=== PATIENT | female | born 1985 | race American Indian/Alaskan Native ===

== ENCOUNTER 2017-02-17 16:30 | Outpatient (CLI) | payer MEDICAID ==
[2017-02-17] MEDS ORDERED: LACTATED RINGERS 500 ML IV ONE (16:40)
[2017-02-17 17:02] LABS: Bilirubin,Urine NEG (Negative); Blood,Urine NEG (Negative); Ketones,Urine NEG (Negative); Leukocyte Esterase,Urine NEG (Negative); Nitrite,Urine NEG (Negative); Protein,Urine <15 mg/dL mg/dL (Negative); Urobilinogen,Urine < 2.0 mg/dL (<2.0); WBC,Urine < 1.0 /HPF (0.0-6.0)
[2017-02-17 17:50] VITALS: BP 123/69
== END 2017-02-17 18:05 | disposition home or self-care (01) ==
LOC: TRG 16:30
PROVIDERS: ATTEND Obstetrics & Gynecology
DX: O47.03 False labor before 37 completed weeks of gestation, third trimester (principal); Z3A.34 34 weeks gestation of pregnancy
CPT/HCPCS: 59025; 81001; 96360; J7120

== ENCOUNTER 2017-03-10 19:43 | Outpatient (CLI) | payer MEDICAID ==
[2017-03-10 20:01] VITALS: BP 123/78
== END 2017-03-10 23:05 | disposition home or self-care (01) ==
LOC: TRG 19:43
PROVIDERS: ATTEND Obstetrics & Gynecology
DX: O42.92 Full-term premature rupture of membranes, unspecified as to length of time between rupture and onset of labor (principal); Z3A.37 37 weeks gestation of pregnancy

== ENCOUNTER 2017-03-20 22:23 | Outpatient (CLI) | payer MEDICAID ==
[2017-03-20 23:33] VITALS: BP 127/77
[2017-03-21] MEDS ORDERED: VISTARIL PO ONE (00:33)
== END 2017-03-21 00:55 | disposition home or self-care (01) ==
LOC: TRG 22:23
PROVIDERS: ATTEND Obstetrics & Gynecology
CPT/HCPCS: 59025; Q0177

== ENCOUNTER 2017-03-26 13:21 | Inpatient (IN) | payer MEDICAID ==
[2017-03-26] MEDS ORDERED: ZOFRAN IV PRN (13:24)
[2017-03-26] MEDS ORDERED: SUBLIMAZE IV PRN (13:24)
[2017-03-26] MEDS ORDERED: ePHEDrine SULFATE IV PRN ×2 (13:24→16:25)
[2017-03-26] MEDS ORDERED: POLYCILLIN/NS 2 GM/100 ML 2 GM/100 ML BAG IV ONE (13:24)
[2017-03-26] MEDS ORDERED: BRETHINE SUB-Q PRN (13:24)
[2017-03-26] MEDS ORDERED: MINERAL OIL PO PRN (13:24)
--- NOTE | 2017-03-26 13:58 | History and Physical Report ---
History of Present Illness Date of examination: 03/26/17 (5cm dilated in office today) Date of admission: 03/26/17 13:21 History of present illness: EDC Confirmation: 03/30/2017 Gestational Age: 16 1/7 weeks Past History : 3 # 1 Delivery date: 07/28/1999 Delivery type: SAB Comments: D&C # 2 Delivery date: 01/17/2013 Weeks Gestation: 37 labor: yes Delivery type: Delivery location: [place] Infant Sex: Male weight: 5-10 Comments: Vane sebastian # 3 Delivery date: 10/07/2014 Weeks Gestation: 38 labor: yes Delivery type: Delivery location: [place] Sex: Male weight: 6-10 Comments: Vane Past Medical History: Hypertension--off meds for 8 mo prior to today Past Surgical History: negative Past Medical History Anesthesia Complications: negative Anemia: negative Autoimmune Disorder: negative Bleeding Disorder: negative Blood Transfusions: negative Breast Disease: negative Diabetes: negative Heart Disease: negative Hypertension: negative Hepatitis/Liver Disease: negative Kidney Disease/UTI: negative Neurologic/Epilepsy/Migraines: negative Phlebitis/Varicosities: negative Psychiatric: negative Pulmonary Disease/Asthma: negative Thyroid Disease: negative Hospitalizations: negative Surgery (Non-nurse obgyn): negative Infection History Hx of STD: none HIV Risk Eval: low risk Hepatitis B Risk Eval: low risk Personal hx. of genital herpes: yes Partner hx. of genital herpes: no Varicella/Chicken Pox Status: Previous Disease TB Risk: no Infection History Comments: never had another outbreak Genetic History Congenital Heart Defect: Mom: no Dad: no Isaura Disease: Mom: no Dad: no Thalassemia Mom: no Dad: no Neural Tube Defect Mom: no Dad: no Down's Syndrome Mom: no Dad: no Cam-Sachs Mom: no Dad: no Sickle Cell Disease/Trait Mom: no Dad: no Hemophilia Mom: no Dad: no Muscular Dystrophy Mom: no Dad: no Cystic Fibrosis Mom: no Dad: no María Chorea Mom: no Dad: no Mental Retardation Mom: no Dad: no Fragile X Mom: no Dad: no Other Genetic/Chromosomal Disorder Mom: no Dad: no Child w/other defect Mom: no Dad: no Comments/Counselin yo has autism Enviromental Exposures Xray Exposure: no Medication, drug, or alcohol use since LMP: no Chemical/Other Exposure: no Exposure to Cat Liter: no Current Allergies (reviewed today): No known allergies Laboratory Results Routine Urinalysis Leukocytes: negative Nitrite: negative Urobilinogen: negative Protein: negative Blood: negative Ketone: negative Bilirubin: negative Glucose: negative Urine HCG: positive Review of Systems General Denies fever, chills, sweats, anorexia, fatigue, weakness, malaise, weight loss and sleep disorder. Denies nausea, vomiting, headache, swelling of legs, abdominal pain, vaginal discharge, vaginal bleeding and contractions. Denies vaginal discharge, incontinence, dysuria, hematuria, urinary frequency, amenorrhea, menorrhagia, abnormal vaginal bleeding, pelvic pain, genital sores, decreased libido, painful periods, painful sex, urinary urgency, hot flashes, vaginal dryness, vaginal itching and vaginal odor. CV Denies chest pains, palpitations, syncope, dyspnea on exertion, orthopnea, PND and peripheral edema. Resp Denies cough, dyspnea at rest, excessive sputum, hemoptysis, wheezing and pleurisy. GI Denies nausea, vomiting, diarrhea, constipation, change in bowel habits, abdominal pain, melena, hematochezia, jaundice, gas/bloating, indigestion/ heartburn, dysphagia and odynophagia. Endo Denies cold intolerance, heat intolerance, polydipsia, polyphagia, polyuria and unusual weight change. Breast Denies left breast lump, right breast lump, nipple discharge, bloody discharge from nipple, breast pain, abnormal mammogram and breast enlargement. MS Denies back pain, joint pain, joint swelling, muscle cramps, muscle weakness, stiffness, arthritis, sciatica, restless legs, leg pain at night and leg pain with exertion. Derm Denies rash, itching, dryness and suspicious lesions. Neuro Denies paralysis, paresthesias, headache, seizures, tremors, vertigo, transient blindness, frequent falls, frequent headaches and difficulty walking. Psych Denies depression, anxiety, irritability and mood swings. Eyes Denies blurring, diplopia, irritation, discharge, vision loss, eye pain and photophobia. ENT Denies earache, ear discharge, tinnitus, decreased hearing, nasal congestion, nosebleeds, sore throat and hoarseness. Allergy Denies urticaria, allergic rash, hay fever and recurrent infections. Heme Denies abnormal bruising, bleeding and enlarged lymph nodes. 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 Vulva/Vagina: No lesions, normal BUS, normal rugae Cervix: No lesions; no cervical motion tenderness Uterus: normal size and position, midline, mobile size: 16 Adnexae: no masses or tenderness Rectovaginal: no masses or tenderness Past History - Obstetrical History Expected Date of Delivery: 03/30/17 Actual Gestation: 39 Week(s) 3 Day(s) : 4 Para: 2 Hx # Term Pregnancies: 2 Number of Pregnancies: 0 Spontaneous Abortions: 1 Induced : 0 Number of Living Children: 2 Medications and Allergies Allergies Allergy/AdvReac Type Severity Reaction Status Date / Time No Known Allergies Allergy Unverified 02/17/17 16:40 Home Medications Medication Instructions Recorded Confirmed Last Taken Type Vit No.129/Iron/Folic 1 each PO DAILY 03/26/17 03/26/17 03/25/17 13:00 History [ Tablet] valACYclovir [Valtrex] 500 mg PO DAILY 03/26/17 03/26/17 03/25/17 13:00 History Active Meds: Active Medications Ephedrine Sulfate (Ephedrine Sulfate) 10 mg IV Q2M PRN PRN Reason: Hypotension Fentanyl (Sublimaze) 100 mcg IV Q2H PRN PRN Reason: Labor Pain Ampicillin Sodium (Polycillin/Ns 1 Gm/50 Ml) 1 gm in 50 mls @ 100 mls/hr IV Q4H ADOLFO PRN Reason: Protocol Ampicillin Sodium (Polycillin/Ns 2 Gm/100 Ml) 2 gm in 100 mls @ 100 mls/hr IV ONCE ONE PRN Reason: Protocol Stop: 03/26/17 14:23 Lactated Ringer's (Lactated Ringers) 1,000 mls @ 125 mls/hr IV DIRECT ADOLFO Oxytocin/Sodium Chloride (Pitocin/Ns 20 Unit/1000ml Drip) 20 units in 1,000 mls @ 125 mls/hr IV DIRECT ADOLFO Oxytocin/Sodium Chloride (Pitocin/Ns 30 Unit/500ml) 30 units in 500 mls @ 4 mls /hr IV Q30MIN ADOLFO PRN Reason: Protocol Lidocaine (Xylocaine 2%) 20 ml INFILTRATI ONCE ONE Stop: 03/26/17 14:25 Mineral Oil (Mineral Oil) 30 ml PO QHS PRN PRN Reason: Constipation Ondansetron HCl (Zofran) 4 mg IV Q8H PRN PRN Reason: Nausea And Vomiting Terbutaline Sulfate (Brethine) 0.25 mg SUB-Q ONCE PRN PRN Reason: Hyperstimulation/Hypertonicity - Physical Exam Breasts: Positive: deferred Cardiovascular: Regular rate, Normal S1, Normal S2 Lungs: Positive: Normal air movement Abdomen: Positive: normal appearance, soft, normal bowel sounds. Negative: distention, tenderness Genitourinary (Female): Positive: normal external genitalia Vulva: both: normal Vagina: Positive: normal moisture. Negative: discharge Cervix: Negative: lesion, discharge Uterus: Positive: normal size, normal contour Adnexa: both: normal Anus/Rectum: Positive: normal perianal skin, heme negative. Negative: rectal mass, hemorrhoids Extremities: Deep Tendon Reflex Grade: Normal +2 - Obstetrical FHR: category 1 Uterine Contraction Monitor Mode: External Uterine Contraction Pattern: Irregular Uterine Tone Measurement Phase: Resting Uterine Contraction Intensity: Moderate Results All other labs normal. Strep Gp B LEA [A] Positive HBsAg Screen Negative Negative *1 Rubella Antibodies, IgG 2.78 index Immune >0.99 *2 Non-immune <0.90 Equivocal 0.90 - 0.99 Immune >0.99 ABO Grouping O *3 Rh Factor Negative *4 Please note: Prior records for this patient's ABO / Rh type are not available for additional verification. Antibody Screen Negative Negative *5 RPR Non Reactive Non Reactive *6 WBC 5.4 x10E3/uL 3.4-10.8 *7 RBC 4.54 x10E6/uL 3.77-5.28 *8 Hemoglobin 13.5 g/dL 11.1-15.9 *9 Hematocrit 42.6 % 34.0-46.6 *10 MCV 94 fL 79-97 *11 MCH 29.7 pg 26.6-33.0 *12 MCHC 31.7 g/dL 31.5-35.7 *13 RDW 14.2 % 12.3-15.4 *14 Platelets 232 x10E3/uL 150-379 *15 Neutrophils 62 % *16 Lymphs 32 % *17 Monocytes 5 % *18 Eos 1 % *19 Basos 0 % *20 ! Immature Cells <No Reported Value> *21 Neutrophils (Absolute) 3.3 x10E3/uL 1.4-7.0 *22 Lymphs (Absolute) 1.7 x10E3/uL 0.7-3.1 *23 Monocytes(Absolute) 0.3 x10E3/uL 0.1-0.9 *24 Eos (Absolute) 0.1 x10E3/uL 0.0-0.4 *25 Baso (Absolute) 0.0 x10E3/uL 0.0-0.2 *26 ! Immature Granulocytes 0 % *27 ! Immature Grans (Abs) 0.0 x10E3/uL 0.0-0.1 *28 ! NRBC <No Reported Value> *29 Hematology Comments: <No Reported Value> *30 Tests: (2) AFP Tetra (525026) ! Results Report *31 ! Test Results: *Screen Negative* *32 ! Gest. Age on Collection Date 16.0 WEEKS *33 ! Gestat. Age Based On LIDIA *34 03/31/2017 ! Maternal Age At LIDIA 32.8 YEARS *35 ! Race Black *36 ! Weight 177 lbs *37 ! Insulin Dep Diabetes No *38 ! Multiple Gestation No *39 ! AFP Value 16.1 ng/mL *40 ! AFP MoM 0.50 *41 ! hCG Value 49308 mIU/mL *42 ! hCG MoM 0.97 *43 ! uE3 Value 0.99 ng/mL *44 ! uE3 MoM 1.27 *45 ! CHAR Value 115.76 pg/mL *46 ! CHAR MoM 0.70 *47 ! OSBR [place] 1 [place] [address] *48 ! DSR (Second Trimester) 1 IN 3083 *49 ! DSR (By Age) 1 IN 460 *50 ! T18 Risk Not increased *51 ! T18 (By Age) 1:1793 *52 ! Interpretation NL42 *53 Interpretation: Screen Negative . *55 Tests: (3) SMN1 Copy Number Analysis ([id number]) ! Genetic Counselor: Not applicable *56 ! Client Specimen ID: Not applicable *57 ! Specimen Type: SPRCS *58 Peripheral Blood ! Specimen(s) Received: SPRCS *59 1 - Yellow (ACD) 10 ml round bottom tube(s) ! Clinical Data: SPRCS *60 Not Provided ! Ethnicity: SPRCS *61 Not Provided ! SMA Results: SPRCS *62 SMN1 copy number: 3 (Reduced Carrier Risk) ! SMA Interpretation: Note *63 This individual has an SMN1 copy number of three (or more). This result reduces but does not eliminate the risk to be a carrier of SMA. Information regarding clinical indication may provide a more detailed interpretation. Tests: (4) Cystic Fibrosis Profile (829286) ! CF, Screen Comment: *70 RESULTS: Negative for 32 mutations analyzed Tests: (5) HB Solu + Rflx Frac (344131) Hemoglobin (Hgb) Solubility Negative Negative *72 Tests: (6) Panel 155325 (118364) HIV Screen 4th Generation wRfx Non Reactive Non Reactive *73 Tests: (7) HCV Ab w/Rflx to Verification (832250) ! HCV Ab <0.1 s/co ratio 0.0-0.9 *74 Tests: (8) Comment: (261219) ! Comment: SPR *75 Non reactive HCV antibody screen is consistent with no HCV infection, unless recent infection is suspected or other evidence exists to indicate HCV infection. Assessment and Plan - Patient Problems (1) Rh negative, maternal Onset Date: ~03/26/17 Current Visit: Yes Status: Acute Qualifiers: Trimester: third trimester Qualified Code(s): O09.893 - Supervision of other high risk pregnancies, third trimester Plan to address problem: pt received Rhogam 01-29-17 @ 28 weeks gestation Antibody screen was negative @ that encounter (2) Group B Streptococcus carrier state affecting Onset Date: ~03/26/17 Current Visit: Yes Status: Acute Plan to address problem: Ampicillin order as per protocol (3) Active labor Onset Date: ~03/26/17 Current Visit: Yes Status: Acute Plan to address problem: 31yo @ 39 weeks sent from office in active labor 5 cm dilated All orders in EMR Anticipate delivery
[2017-03-26] MEDS ORDERED: PITOCin/NS 20 UNIT/1000ML DRIP 20 UNITS/1,000 ML BAG IV SCH (14:00)
[2017-03-26 14:01] LABS: Hematocrit 44.2 % (30.3-42.9); Hemoglobin 14.4 gm/dl (10.1-14.3); Mean Corpuscular HGB Conc 33 % (30-34); Mean Corpuscular Hemoglobin 30 pg (28-32); Mean Corpuscular Volume 93 fl (79-97); Platelet Count 179 K/mm3 (140-440); Red Blood Count 4.74 M/mm3 (3.65-5.03); Red Cell Distribution Width 14.3 % (13.2-15.2); White Blood Count 5.7 K/mm3 (4.5-11.0)
[2017-03-26] MEDS: LACTATED RINGERS 1,000 ML IV SCH ×3 (14:20→17:20)
[2017-03-26] MEDS ORDERED: XYLOCAINE 2% INFILTRATI ONE (14:24)
[2017-03-26] MEDS ORDERED: NARCAN 2 MG/2 ML IV PRN (16:25)
--- NOTE | 2017-03-26 16:25 | Anesthesia Consultation ---
Anesthesia Consult and Med Hx Date of service: 03/26/17 - Airway Anesthetic Teeth Evaluation: Good ROM Head & Neck: Adequate Mental/Hyoid Distance: Adequate Mallampati Class: Class II Intubation Access Assessment: Good - Pulmonary Exam CTA: Yes - Cardiac Exam Cardiac Exam: No Murmur - Pre-Operative Health Status ASA Pre-Surgery Classification: ASA2 Proposed Anesthetic Plan: Epidural - Pulmonary Hx Asthma: No COPD: No Hx Pneumonia: No - Cardiovascular System Hx Hypertension: Yes (had htn before which resolved after taking antihypertensives) - Central Nervous System Hx Seizures: No Hx Psychiatric Problems: No - Endocrine Hx Renal Disease: No Hx End Stage Renal Disease: No Hx Hypothyroidism: No Hx Hyperthyroidism: No - Hematic Hx Anemia: No Hx Sickle Cell Disease: No - Other Systems Hx Alcohol Use: Yes (occas social when not )
[2017-03-26] MEDS ORDERED: fentaNYL-BUPIV 2 MCG/ML-0.125% 200 MCG/100 ML BAG EPIDURAL SCH (17:00)
--- NOTE | 2017-03-26 17:30 | Progress Note ---
Assessment and Plan Pt comfortable with epidural SVE 6,70,-1 Will start pitocin as ordered. Anticipate delivery. - Patient Problems (1) Rh negative, maternal Onset Date: ~03/26/17 Current Visit: Yes Status: Acute Qualifiers: Trimester: third trimester Qualified Code(s): O09.893 - Supervision of other high risk pregnancies, third trimester (2) Group B Streptococcus carrier state affecting Onset Date: ~03/26/17 Current Visit: Yes Status: Acute (3) Active labor Onset Date: ~03/26/17 Current Visit: Yes Status: Acute Subjective - Subjective Date of service: 03/26/17 (comfortable with epidural) Interval history: EDC Confirmation: 03/30/2017 Gestational Age: 16 1/7 weeks Past History : 3 # 1 Delivery date: 07/28/1999 Delivery type: SAB Comments: D&C # 2 Delivery date: 01/17/2013 Weeks Gestation: 37 labor: yes Delivery type: Delivery location: [place] Sex: Male weight: 5-10 Comments: Vane sebastian # 3 Delivery date: 10/07/2014 Weeks Gestation: 38 labor: yes Delivery type: Delivery location: [place] Sex: Male weight: 6-10 Comments: Vane Past Medical History: Hypertension--off meds for 8 mo prior to today Past Surgical History: negative Past Medical History Anesthesia Complications: negative Anemia: negative Autoimmune Disorder: negative Bleeding Disorder: negative Blood Transfusions: negative Breast Disease: negative Diabetes: negative Heart Disease: negative Hypertension: negative Hepatitis/Liver Disease: negative Kidney Disease/UTI: negative Neurologic/Epilepsy/Migraines: negative Phlebitis/Varicosities: negative Psychiatric: negative Pulmonary Disease/Asthma: negative Thyroid Disease: negative Hospitalizations: negative Surgery (Non-performance architect): negative Infection History Hx of STD: none HIV Risk Eval: low risk Hepatitis B Risk Eval: low risk Personal hx. of genital herpes: yes Partner hx. of genital herpes: no Varicella/Chicken Pox Status: Previous Disease TB Risk: no Infection History Comments: never had another outbreak Genetic History Congenital Heart Defect: Mom: no Dad: no Isaura Disease: Mom: no Dad: no Thalassemia Mom: no Dad: no Neural Tube Defect Mom: no Dad: no Down's Syndrome Mom: no Dad: no Cam-Sachs Mom: no Dad: no Sickle Cell Disease/Trait Mom: no Dad: no Hemophilia Mom: no Dad: no Muscular Dystrophy Mom: no Dad: no Cystic Fibrosis Mom: no Dad: no María Chorea Mom: no Dad: no Mental Retardation Mom: no Dad: no Fragile X Mom: no Dad: no Other Genetic/Chromosomal Disorder Mom: no Dad: no Child w/other defect Mom: no Dad: no Comments/Counselin yo has autism Enviromental Exposures Xray Exposure: no Medication, drug, or alcohol use since LMP: no Chemical/Other Exposure: no Exposure to Cat Liter: no Current Allergies (reviewed today): No known allergies Laboratory Results Routine Urinalysis Leukocytes: negative Nitrite: negative Urobilinogen: negative Protein: negative Blood: negative Ketone: negative Bilirubin: negative Glucose: negative Urine HCG: positive Review of Systems General Denies fever, chills, sweats, anorexia, fatigue, weakness, malaise, weight loss and sleep disorder. Denies nausea, vomiting, headache, swelling of legs, abdominal pain, vaginal discharge, vaginal bleeding and contractions. Denies vaginal discharge, incontinence, dysuria, hematuria, urinary frequency, amenorrhea, menorrhagia, abnormal vaginal bleeding, pelvic pain, genital sores, decreased libido, painful periods, painful sex, urinary urgency, hot flashes, vaginal dryness, vaginal itching and vaginal odor. CV Denies chest pains, palpitations, syncope, dyspnea on exertion, orthopnea, PND and peripheral edema. Resp Denies cough, dyspnea at rest, excessive sputum, hemoptysis, wheezing and pleurisy. GI Denies nausea, vomiting, diarrhea, constipation, change in bowel habits, abdominal pain, melena, hematochezia, jaundice, gas/bloating, indigestion/ heartburn, dysphagia and odynophagia. Endo Denies cold intolerance, heat intolerance, polydipsia, polyphagia, polyuria and unusual weight change. Breast Denies left breast lump, right breast lump, nipple discharge, bloody discharge from nipple, breast pain, abnormal mammogram and breast enlargement. MS Denies back pain, joint pain, joint swelling, muscle cramps, muscle weakness, stiffness, arthritis, sciatica, restless legs, leg pain at night and leg pain with exertion. Derm Denies rash, itching, dryness and suspicious lesions. Neuro Denies paralysis, paresthesias, headache, seizures, tremors, vertigo, transient blindness, frequent falls, frequent headaches and difficulty walking. Psych Denies depression, anxiety, irritability and mood swings. Eyes Denies blurring, diplopia, irritation, discharge, vision loss, eye pain and photophobia. ENT Denies earache, ear discharge, tinnitus, decreased hearing, nasal congestion, nosebleeds, sore throat and hoarseness. Allergy Denies urticaria, allergic rash, hay fever and recurrent infections. Heme Denies abnormal bruising, bleeding and enlarged lymph nodes. 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 Vulva/Vagina: No lesions, normal BUS, normal rugae Cervix: No lesions; no cervical motion tenderness Uterus: normal size and position, midline, mobile size: 16 Adnexae: no masses or tenderness Rectovaginal: no masses or tenderness Patient reports: movement normal Objective - Vital Signs Vital Signs: Vital Signs - 12hr 03/26/17 03/26/17 03/26/17 14:04 14:08 16:00 Temperature 97.2 F L 97.7 F Pulse Rate 102 H 102 H 88 Respiratory 18 18 Rate Blood Pressure 116/77 Blood Pressure 116/77 113/73 [Right] O2 Sat by Pulse Oximetry 03/26/17 03/26/17 03/26/17 16:03 16:35 16:37 Temperature 97.9 F Pulse Rate 88 101 H 83 Respiratory 18 Rate Blood Pressure 113/73 136/68 Blood Pressure 136/68 [Right] O2 Sat by Pulse 98 97 Oximetry 03/26/17 03/26/17 03/26/17 16:42 16:44 16:46 Temperature Pulse Rate 97 H 94 H 90 Respiratory Rate Blood Pressure 132/69 135/72 Blood Pressure [Right] O2 Sat by Pulse 98 Oximetry 03/26/17 03/26/17 03/26/17 16:47 16:49 16:50 Temperature Pulse Rate 101 H 83 89 Respiratory Rate Blood Pressure 146/89 133/60 Blood Pressure [Right] O2 Sat by Pulse 97 Oximetry 03/26/17 03/26/17 03/26/17 16:52 16:54 16:56 Temperature Pulse Rate 110 H 115 H 104 H Respiratory Rate Blood Pressure 133/62 124/57 129/66 Blood Pressure [Right] O2 Sat by Pulse 97 Oximetry 03/26/17 03/26/17 03/26/17 16:57 16:58 17:00 Temperature Pulse Rate 115 H 95 H 107 H Respiratory Rate Blood Pressure 114/58 113/58 Blood Pressure [Right] O2 Sat by Pulse 98 Oximetry 03/26/17 03/26/17 03/26/17 17:02 17:04 17:06 Temperature Pulse Rate 110 H 93 H 75 Respiratory Rate Blood Pressure 90/51 89/51 117/63 Blood Pressure [Right] O2 Sat by Pulse 98 Oximetry 03/26/17 03/26/17 03/26/17 17:07 17:08 17:10 Temperature Pulse Rate 72 72 96 H Respiratory Rate Blood Pressure 124/63 122/64 Blood Pressure [Right] O2 Sat by Pulse 97 Oximetry 03/26/17 03/26/17 03/26/17 17:12 17:14 17:16 Temperature Pulse Rate 87 93 H 92 H Respiratory Rate Blood Pressure 127/66 121/63 127/68 Blood Pressure [Right] O2 Sat by Pulse 99 Oximetry 03/26/17 03/26/17 03/26/17 17:17 17:18 17:20 Temperature Pulse Rate 100 H 104 H 90 Respiratory Rate Blood Pressure 115/64 118/66 Blood Pressure [Right] O2 Sat by Pulse 98 Oximetry 03/26/17 03/26/17 03/26/17 17:22 17:24 17:25 Temperature Pulse Rate 92 H 114 H 109 H Respiratory Rate Blood Pressure 128/69 137/60 126/61 Blood Pressure [Right] O2 Sat by Pulse 97 Oximetry 03/26/17 17:27 Temperature Pulse Rate 96 H Respiratory Rate Blood Pressure Blood Pressure [Right] O2 Sat by Pulse 98 Oximetry - Exam Breasts: deferred Cardiovascular: Regular rate Lungs: Normal air movement Abdomen: Present: normal appearance, soft. Absent: distention, tenderness Uterus: Present: normal FHR: auscultation normal, category 1 Uterine Contraction Monitor Mode: External Cervical Dilatation: 6 (SROM clear fluid) Cervical Effacement Percentage: 70 station: -1 Uterine Contraction Pattern: Regular Uterine Tone Measurement Phase: Resting Uterine Contraction Intensity: Moderate Extremities: normal Deep Tendon Reflex Grade: Normal +2 - Labs Labs: Abnormal Labs 03/26/17 13:40 Hgb 14.4 H Hct 44.2 H Laboratory Results - last 24 hr 03/26/17 03/26/17 13:40 13:40 WBC 5.7 RBC 4.74 Hgb 14.4 H Hct 44.2 H MCV 93 MCH 30 MCHC 33 RDW 14.3 Plt Count 179 Blood Type O NEGATIVE Antibody Screen Negative
[2017-03-26] MEDS: POLYCILLIN/NS 1 GM/50 ML 1 GM/50 ML BAG IV SCH ×2 (17:41→20:39)
[2017-03-26] MEDS: PITOCin/NS 30 UNIT/500ML 30 UNITS/500 ML BAG IV SCH ×2 (17:59→18:34)
--- NOTE | 2017-03-26 21:49 | Procedure Note ---
OB Delivery Note - Delivery Date of Delivery: 03/26/17 Surgeon: CLARISA ESPOSITO Estimated blood loss: 300cc - Vaginal Delivery presentation: vertex Delivery position: OA Delivery augmentation: rupture of membranes Delivery monitor: external FHT, external uterine Route of delivery: Episiotomy: none Delivery laceration: none Anesthesia: epidural - Infant A at 1 minute: 8 at 5 minutes: 9 Gender: Male
[2017-03-26] MEDS ORDERED: MILK OF MAGNESIA PO PRN (23:08)
[2017-03-26] MEDS ORDERED: DULCOLAX PR PRN (23:08)
[2017-03-26] MEDS ORDERED: TYLENOL PO PRN (23:08)
[2017-03-26] MEDS ORDERED: SODIUM CHLORIDE FLUSH SYRINGE 10 ML IV PRN (23:08)
[2017-03-26] MEDS ORDERED: TUCKS PAD TP PRN (23:08)
[2017-03-26] MEDS ORDERED: BENADRYL PO PRN (23:08)
[2017-03-26] MEDS ORDERED: PHENERGAN PO PRN (23:08)
[2017-03-26] MEDS: COLACE PO SCH (23:20)
[2017-03-26] MEDS: MOTRIN PO SCH (23:20)
[2017-03-27] MEDS: MOTRIN PO SCH ×3 (05:47→23:22)
[2017-03-27] MEDS ORDERED: BOOSTRIX IM ONE (06:00)
--- NOTE | 2017-03-27 08:15 | Discharge Summary ---
Providers - Providers Date of Admission: 03/26/17 13:21 Date of discharge: 03/27/17 (pt requests d/c if possible) Attending physician: CLARISA ESPOSITO 03/26/17 23:08 Consult to Barrel Line Operator [CONS] Routine Reason For Exam: assistance with , SNS Primary care physician: TONE RUIZ Hospitalization Reason for admission: active labor Delivery: Episiotomy: none Laceration: none Incision: normal Other procedures: none complications: none Discharge diagnosis: IUP at term delivered baby: male Hospital course: uncomplicated vaginal delivery GBS+ treated X 2 doses prior to delivery Pt w/o complaint VSS FF below umb Lochia scant Perineum intact H&H pending No s/ sx of anemia. Doing well s/p vag del P: d/c today with instructions RTO 4 weeks PP care and 1 week for circ. RX provided @ d/c Condition at discharge: Good Disposition: DC-01 TO HOME OR SELFCARE - Discharge Diagnoses (1) Spontaneous vaginal delivery Status: Acute Comment: RTO 4 weeks PP care Plan - Discharge Medications Prescriptions: RX: Ibuprofen [Motrin 800 MG tab] 800 mg PO TID PRN #30 tablet PRN Reason: Pain Lidocain2.5%/Prilocai2.5% [Emla] 5 gm TP PRN #1 tube - Provider Discharge Summary Activity: routine, no sex for 6 weeks, no heavy lifting 4 weeks, no strenuous exercise Diet: routine Instructions: routine Additional instructions: [] Smoking cessation referral if applicable(refer to patient education folder for contact #) [] Refer to [facility] Booklet Call your doctor immediately for: * Fever > 100.5 * Heavy vaginal bleeding ( >1 pad per hour) * Severe persistent headache * Shortness of breath * Reddened, hot, painful area to leg or breast * Drainage or odor from incision. * Keep incision clean and dry at all times and follow doctor's instructions regarding bathing/showering - Follow up plan Follow up: TONE RUIZ MD [Primary Care Provider] - 7 Days (Please call [phone] to schedule your postoperative visit and your son's circumcision in one week. Bring the EMLA cream with you to his visit. Take medications as prescribed. Call with concerns.)
[2017-03-27 10:45] LABS: Hematocrit 38.2 % (30.3-42.9); Hemoglobin 12.8 gm/dl (10.1-14.3)
[2017-03-27] MEDS ORDERED: Fluarix Quad 2017-2018(36 MOS+ IM ONE (12:00)
[2017-03-27] MEDS: COLACE PO SCH ×2 (12:40→23:21)
[2017-03-27] MEDS: NORCO 5/325 PO PRN ×2 (12:40→21:02)
[2017-03-27] MEDS: PRENATAL VITAMIN PO SCH (12:40)
[2017-03-28] MEDS: MOTRIN PO SCH ×2 (05:41→18:12)
[2017-03-28] MEDS ORDERED: BOOSTRIX IM ONE (06:00)
[2017-03-28] MEDS: COLACE PO SCH (10:48)
[2017-03-28] MEDS: PRENATAL VITAMIN PO SCH (10:48)
[2017-03-28] MEDS: NORCO 5/325 PO PRN ×2 (10:50→20:17)
[2017-03-28] MEDS ORDERED: Fluarix Quad 2017-2018(36 MOS+ IM ONE (12:00)
[2017-03-28 21:05] VITALS: BP 118/68
== END 2017-03-28 20:45 | disposition home or self-care (01) | DRG 774 ==
LOC: LD 13:21 → OB 23:11
PROVIDERS: ADMIT Obstetrics & Gynecology; ATTEND Obstetrics & Gynecology
PROC: 10E0XZZ Delivery of Products of Conception, External Approach (ICD-10-PCS; principal; 2017-03-26)
PROC: 3E0R3BZ Introduction of Anesthetic Agent into Spinal Canal, Percutaneous Approach (ICD-10-PCS; 2017-03-26)
PROC: 00HU33Z Insertion of Infusion Device into Spinal Canal, Percutaneous Approach (ICD-10-PCS; 2017-03-26)
PROC: 30233S1 Transfusion of Nonautologous Globulin into Peripheral Vein, Percutaneous Approach (ICD-10-PCS; 2017-03-27)
PROC: 3E0234Z Introduction of Serum, Toxoid and Vaccine into Muscle, Percutaneous Approach (ICD-10-PCS; 2017-03-27)
DX: O10.02 Pre-existing essential hypertension complicating childbirth (principal); O99.824 Streptococcus B carrier state complicating childbirth; Z3A.39 39 weeks gestation of pregnancy; Z37.0 Single live birth; Z23 Encounter for immunization
CPT/HCPCS: 36415; 85014; 85018; 85027; 85461; 86850; 86900; 86901; 90471; 90686; 90715; 99211; G0008; G0463; J0290; J2590; J2790; J7120

== ENCOUNTER 2017-03-29 04:36 | Emergency (ER) | payer MEDICAID ==
[2017-03-29 05:30] LABS: Bacteria,Urine 1+ /HPF (Negative); Bilirubin,Urine NEG (Negative); Blood,Urine LG (Negative); Ketones,Urine NEG (Negative); Leukocyte Esterase,Urine LG (Negative); Mucus,Urine FEW /HPF; Nitrite,Urine NEG (Negative); Protein,Urine <15 mg/dL mg/dL (Negative); Urobilinogen,Urine < 2.0 mg/dL (<2.0)
[2017-03-29 05:31] LABS: Anion Gap 16 mmol/L; BUN/Creatinine Ratio 12; Blood Urea Nitrogen 6 mg/dL (7-17); Carbon Dioxide 25 mmol/L (22-30); Chloride 99.8 mmol/L (98-107); Glucose 83 mg/dL (65-100); Potassium 3.9 mmol/L (3.6-5.0); Sodium 137 mmol/L (137-145)
[2017-03-29 07:09] LABS: Basophils % (Auto) 0.7 % (0.0-1.8); Eosinophils % (Auto) 2.8 % (0.0-4.3); Hematocrit 38.1 % (30.3-42.9); Hemoglobin 12.7 gm/dl (10.1-14.3); Mean Corpuscular HGB Conc 33 % (30-34); Mean Corpuscular Hemoglobin 31 pg (28-32); Mean Corpuscular Volume 93 fl (79-97); Platelet Count 150 K/mm3 (140-440); Red Blood Count 4.12 M/mm3 (3.65-5.03); Red Cell Distribution Width 14.5 % (13.2-15.2); White Blood Count 5.4 K/mm3 (4.5-11.0)
[2017-03-29] MEDS ORDERED: NACL 0.9% 1000 ML 1,000 ML IV ONE ×2 (07:23→07:36)
[2017-03-29] MEDS ORDERED: TYLENOL PO ONE (07:24)
[2017-03-29] MEDS ORDERED: MORPHINE IV ONE ×2 (07:25→07:36)
[2017-03-29] MEDS ORDERED: ZOFRAN IV ONE ×2 (07:25→07:36)
--- NOTE | 2017-03-29 07:38 | Emergency Department Report ---
HPI - General Chief Complaint: Abdominal Pain Time Seen by Provider: 03/29/17 07:15 - HPI HPI: The patient is a 31-year-old female 3 days status post spontaneous vaginal delivery, who presents for evaluation of abdominal pain. The patient reports left-sided and right-sided abdominal pain for the past 2 days, left thoracic back pain. She states that her abdominal pain has been constant since onset, 8/ 10 in severity, crampy in quality, exacerbated with movement. She denies trauma to the abdomen. The patient also denies fever, chills, night sweats, cough, chest pain, hemoptysis, diarrhea, blood in the stool, dark tarry stool, hematuria, flank pain, genital discharge, abnormal vaginal bleeding. ED Past Medical Hx - Past Medical History Hx Hypertension: Yes (had htn before which resolved after taking antihypertensives) Hx Congestive Heart Failure: No Hx Diabetes: No Hx Deep Vein Thrombosis: No Hx Renal Disease: No Hx Sickle Cell Disease: No Hx Seizures: No Hx Asthma: No Hx COPD: No Hx HIV: No - Surgical History Past Surgical History?: No - Social History Smoking Status: Never Smoker Substance Use Type: None - Medications Home Medications: Home Medications Medication Instructions Recorded Confirmed Last Taken Type valACYclovir [Valtrex] 500 mg PO DAILY 03/26/17 03/26/17 03/25/17 13:00 History Ibuprofen [Motrin 800 MG tab] 800 mg PO TID PRN #30 tablet 03/27/17 Unknown Rx Lidocain2.5%/Prilocai2.5% [Emla] 5 gm TP PRN #1 tube 03/27/17 Unknown Rx Cephalexin [Keflex] 500 mg PO Q6HR #30 capsule 03/29/17 Unknown Rx Ibuprofen [Motrin] 800 mg PO Q8HR PRN #15 tablet 03/29/17 Unknown Rx traMADol [Ultram 50 MG tab] 50 mg PO Q6HR PRN #15 tablet 03/29/17 Unknown Rx ED Review of Systems ROS: Stated complaint: ABD PAIN Other details as noted in HPI Constitutional: denies: fever ENT: denies: throat or neck pain Respiratory: denies: cough, shortness of breath Cardiovascular: denies: chest pain Endocrine: denies unexplained weight loss or gain Gastrointestinal: reports abdominal pain, nausea Genitourinary: denies: dysuria Musculoskeletal: reports back pain denies: leg swelling Skin: denies: rash Neurological: denies: headache Hematological/Lymphatic: denies: easy bleeding or easy bruising Psych: denies sadness or hopelessness Physical Exam - Physical Exam Vital Signs: Vital Signs 03/29/17 03/29/17 03/29/17 04:40 05:19 05:50 Temperature 99.8 F H 99.5 F 99.8 F H Pulse Rate 107 H 109 H Respiratory 20 16 Rate Blood Pressure 168/95 Blood Pressure 135/87 [Right] O2 Sat by Pulse 100 99 Oximetry Physical Exam: General: well-nourished, well-developed, no acute distress Head: Normocephalic, atraumatic Eyes: normal sclera ENT: Mucous membranes are pale and dry Neck: No neck stiffness, no cervical adenopathy Respiratory: Breath sounds equal bilaterally, no wheezing, rales, or rhonchi Cardio: S1 and S2 present, no murmurs, rubs, gallops, capillary refill is delayed Abdomen: Normoactive bowel sounds, soft abdomen, LUQ, LLQ, and RUQ abd pain, no rigidity, no guarding or rebound tenderness Chest WALL/Back: No tenderness to palpation of the chest wall, no CVA tenderness with percussion Musc: No pitting edema Skin: No rash Neuro: no facial drooping, normal speech Psych: Normal affect ED Course Vital Signs 03/29/17 03/29/17 03/29/17 04:40 05:19 05:50 Temperature 99.8 F H 99.5 F 99.8 F H Pulse Rate 107 H 109 H Respiratory 20 16 Rate Blood Pressure 168/95 Blood Pressure 135/87 [Right] O2 Sat by Pulse 100 99 Oximetry ED Medical Decision Making - Lab Data Result diagrams: 03/29/17 04:49 03/29/17 04:49 - Medical Decision Making The patient was seen and examined by myself. The patient is placed on a corporate development intern and continuous pulse ox. On initial evaluation, the patient was found to be in no distress. Evaluation orders are placed. IV access is established and the patient is given 1 L normal saline fluid bolus and Zofran for nausea, and IV morphine for pain. EKG was negative for eyes concerning for acute cardiac disease process. X-ray of the chest is negative for acute cardiopulmonary disease process. Lab results revealed mildly elevated urine WBC with positive leukocyte esterase, consistent with urinary tract infection, and otherwise labs were non-concerning including WBC, hemoglobin, hematocrit, electrolytes, renal function, LFTs, lipase, bnp, and troponin level. CT scan abdomen and pelvis is negative for appendicitis, bowel obstruction, endometritis , or other emergent abdominal/pelvic disease process. The patient is given Keflex for treatment of urinary tract infection. The patient was reevaluated and reported that their symptoms were markedly improved. The patient is stable for discharge with outpatient follow-up. The patient is given follow-up and return instructions. The patient expressed understanding and agreed with the plan. The patient is discharged in stable condition. Critical care attestation.: If time is entered above; I have spent that time in minutes in the direct care of this critically ill patient, excluding procedure time. ED Disposition Clinical Impression: Abdominal pain, acute, right upper quadrant, Abdominal pain, acute, left upper quadrant, Acute chest pain, Acute lower UTI (urinary tract infection), Dehydration, mild Disposition: TO HOME OR SELFCARE Is pt being admited?: No Does the pt Need Aspirin: No Condition: Stable Instructions: Abdominal Pain (ED), Chest Pain (ED), Urinary Tract Infection in Women (ED) Prescriptions: Cephalexin [Keflex] 500 mg PO Q6HR #30 capsule Ibuprofen [Motrin] 800 mg PO Q8HR PRN #15 tablet PRN Reason: Pain traMADol [Ultram 50 MG tab] 50 mg PO Q6HR PRN #15 tablet PRN Reason: Pain Referrals: TRUMAN RAMIREZ NP-C [Primary Care Provider] - 3-5 Days Time of Disposition: 10:01
--- NOTE | 2017-03-29 08:36 | Cat Scan Report ---
FINAL REPORT EXAM: CT ABDOMEN PELVIS W CON HISTORY: LLQ RLQ ab pain Lt scapula pain 3d s/p vag deliv TECHNIQUE: CT images are acquired through the Abdomen and Pelvis arterial and delayed phases following intravenous administration of contrast. Transaxial, coronal and sagittal reformations are provided. PRIORS: None FINDINGS: Partially visualized intrathoracic contents are unremarkable. The liver, gallbladder, pancreas, spleen, and adrenal glands are unremarkable. Kidneys show no worrisome lesions, hydronephrosis, or calculi. Urinary bladder is unremarkable. Small and large bowel are normal in caliber. Appendix is normal. No free air, free fluid, or lymphadenopathy identified. Aorta is normal in course and caliber. Anteverted enlarged uterus. Endometrial and endocervical blood products are hyperdense. Superficial soft tissues are remarkable for rectus diastasis and numerous cystic nodules and edema in the dependent soft tissues of the lower back, buttocks and upper thighs. No acute or aggressive appearing skeletal findings. Prior right femoral neck fixation. Periarticular sacroiliac sclerosis with possible left-sided erosions. IMPRESSION: appearance of the uterus with blood products in the endometrium and distending the endocervical canal. No findings to explain patient's symptoms Asymmetric periarticular sacroiliac sclerosis with small left-sided erosions suggested. Correlation for history of sacroiliitis is requested.
[2017-03-29] MEDS ORDERED: KEFLEX PO ONE (09:59)
[2017-03-29 11:13] VITALS: BP 136/66
--- NOTE | 2017-03-29 14:39 | XRay Report ---
FINAL REPORT EXAM: XR CHEST 1V AP HISTORY: chest pain TECHNIQUE: Frontal chest x-ray. PRIORS: None currently available. FINDINGS: Cardiac silhouette is within normal limits. There is no effusion. There is no pneumothorax. There is no consolidation. There are no suspicious osseous lesions. IMPRESSION: No acute cardiopulmonary findings.
== END 2017-03-29 11:44 | disposition home or self-care (01) ==
LOC: ED 04:36
DX: N39.0 Urinary tract infection, site not specified (principal); R10.12 Left upper quadrant pain; R10.11 Right upper quadrant pain; E86.0 Dehydration
CPT/HCPCS: 36415; 71010; 74177; 80048; 81001; 82140; 83880; 84484; 85025; 87040; 87400; 93005; 93010; 96361; 96374; 96375; 99285; J2270; J2405; J7030; Q9967

== ENCOUNTER 2020-06-16 09:33 | Day surgery (SDC) | payer MEDICAID ==
[~2020-06-16 09:33] MED LIST: ACETAMINOPHEN 500 MG TAB PO SCH; CELECOXIB 200 MG CAP PO NR; GABAPENTIN 300 MG CAP PO NR; LACTATED RINGERS 1,000 ML IV SCH; MIDAZOLAM 2 MG/2 ML INJ IV NR; SCOPOLAMINE TRANSDERMAL PATCH 72 HR TD NR
[2020-06-16] MEDS ORDERED: HEPARIN 5,000 UNIT/1 ML VIAL SUB-Q NR (10:00)
[2020-06-16] MEDS ORDERED: ceFAZolin/STERILE WATER 2 GM/20 ML SYRINGE IV NR (10:00)
[2020-06-16] MEDS ORDERED: fentaNYL 100 MCG/2 ML INJ ONE (10:16)
[2020-06-16] MEDS ORDERED: propofoL 200 MG/20 ML VIAL IV ONE ×2 (10:16→10:39)
[2020-06-16] MEDS ORDERED: ONDANSETRON 4 MG/2 ML INJ IV PRN (10:23)
[2020-06-16] MEDS ORDERED: HYDROmorphone 1 MG/1 ML INJ IV PRN (10:23)
--- NOTE | 2020-06-16 10:23 | Anesthesia Consultation ---
Anesthesia Consult and Med Hx Date of service: 06/16/20 - Airway Anesthetic Teeth Evaluation: Good ROM Head & Neck: Adequate Mental/Hyoid Distance: Adequate Mallampati Class: Class II Intubation Access Assessment: Probably Good - Pulmonary Exam CTA: Yes - Cardiac Exam Cardiac Exam: RRR - Pre-Operative Health Status ASA Pre-Surgery Classification: ASA2 Proposed Anesthetic Plan: General - Pulmonary Hx Smoking: No Hx Respiratory Symptoms: No Hx Sleep Apnea: No (JEANETH PRE SCREEN LOW RISK) - Cardiovascular System Hx Hypertension: No (took nifedipine this morning) Hx Heart Attack/AMI: No Hx Percutaneous Transluminal Coronary Angioplasty (PTCA): No - Central Nervous System CVA: No - Endocrine Hx Renal Disease: No Hx Liver Disease: No Hx Insulin Dependent Diabetes: No Hx Non-Insulin Dependent Diabetes: No Hx Thyroid Disease: No - Hematic Hx Anemia: No Hx Sickle Cell Disease: No - Other Systems Hx Obesity: No - Additional Comments Anesthesia Medical History Comments: No hx anesthetic complications.
--- NOTE | 2020-06-16 10:23 | Anesthesia Day of Surgery ---
Anesthesia Day of Surgery - Day of Surgery Patient Examined: Yes Patient H&P Reviewed: Yes Patient is NPO: Yes
[2020-06-16] MEDS ORDERED: BUPIVACAINE/PF (0.5%) 5 MG/1 ML 10 ML VIAL INFILTRATI ONE ×2 (10:31)
[2020-06-16] MEDS ORDERED: SODIUM CHLORIDE 0.9% IRR 1,500 ML BOTTLE IR ONE (10:32)
[2020-06-16] MEDS ORDERED: LIDOCAINE MPF (2%) 20 MG/1 ML VIAL 5 ML ONE ×2 (10:37→11:34)
[2020-06-16] MEDS ORDERED: fentaNYL 250 MCG/5 ML INJ ONE (10:38)
[2020-06-16] MEDS ORDERED: HYDROmorphone 1 MG/1 ML INJ ONE (10:38)
[2020-06-16] MEDS ORDERED: ONDANSETRON 4 MG/2 ML INJ ONE (11:30)
[2020-06-16] MEDS ORDERED: NEOSTIGMINE 10MG/10 ML INJ MDV ONE (11:30)
[2020-06-16] MEDS ORDERED: dexAMETHasone 20 MG/5 ML VIAL ONE (11:30)
[2020-06-16] MEDS ORDERED: GLYCOPYRROLATE 0.4 MG/2 ML INJ ONE (11:30)
[2020-06-16] MEDS ORDERED: ROCURONIUM 50 MG/5 ML INJ IV ONE (11:34)
[2020-06-16] MEDS ORDERED: SUCCINYLCHOLINE CHLORIDE 200 MG/10 ML INJ MDV ONE (11:34)
--- NOTE | 2020-06-16 12:44 | Procedure Note ---
Date of procedure: 06/16/20 Pre-op diagnosis: Periumbilical hernia Post-op diagnosis: same Procedure: Open repair of ventral hernia with mesh Description of procedure: Pt was placed supine on the OR table. General anesthesia was administered. Abdomen was prepped and draped. Skin and SQ tissue over the hernia were infiltrated with 5 mls of 0.5% Marcaine with epinephrine. Skin was incised. Hemostasis was obtained with the Bovie. The hernia sac was immediately identified and the sac was dissected down to it's fascial margins. The hernia sac was entered and did not contain any incarcerated tissue. The hernia sac was excised. A small piece of Ventralex ST mesh was appropriately positioned within the peritoneal cavity. The mesh was secured to the fascia and the fascial defect simultaneously closed with interrupted sutures of 0-Ethibond. Skin was approximated with a running subcuticular suture of 4-0 Monocryl. Skin glue was applied. Pt tolerated the procedure well. Pt was taken to PACU in stable condition. Anesthesia: GETA Surgeon: JOSE HARRIS Estimated blood loss: minimal Pathology: none Specimen disposition: discarded Condition: stable Disposition: PACU
--- NOTE | 2020-06-16 13:44 | Post Anesthesia Evaluation ---
- Post Anesthesia Evaluation Patient Participated: Yes Airway Patent: Yes Stable Respiratory Function: Yes Nausea/Vomiting: No Temp > 96.8F: Yes Pain Manageable: Yes Adequeate Hydration: Yes Anesthesia Complications: No
[2020-06-16 17:35] VITALS: BP 112/72
== END 2020-06-16 09:34 | disposition home or self-care (01) ==
LOC: OR 09:33
PROVIDERS: ATTEND Surgery
DX: K43.9 Ventral hernia without obstruction or gangrene (principal); E78.00 Pure hypercholesterolemia, unspecified; F32.9 Major depressive disorder, single episode, unspecified; Z83.3 Family history of diabetes mellitus; Z79.899 Other long term (current) drug therapy; Z80.8 Family history of malignant neoplasm of other organs or systems; Z82.49 Family history of ischemic heart disease and other diseases of the circulatory system
CPT/HCPCS: 49560; 49568; 81025; C1781; J0330; J0690; J1100; J1644; J2250; J2405; J2704; J2710; J3010; J7120; J1170